=== PATIENT | female | born 1945 | race Caucasian/White ===

== ENCOUNTER → 2020-05-06 | Outpatient (CLI) | payer MEDICARE ==
--- NOTE | 2020-05-06 17:00 | XR ---
EXAMINATION TYPE: XR chest 2V DATE OF EXAM: 05/06/2020 COMPARISON: None HISTORY: 74-year-old female R25.2, cramp and spasm. Presurgical evaluation. TECHNIQUE: AP and lateral views FINDINGS: Heart normal size. Low lung volumes and crowded vascular markings. Diffuse interstitial density. Some hazy left basilar opacity seems to relate to external artifact. No pleural effusion. IMPRESSION: Marked hypoventilatory changes limiting assessment. There are interstitial changes for which bronchit is, asthma, and early pulmonary vascular congestion should be excluded. Consider follow-up when the p atient is able with more adequate inspiration.
[2020-05-06 19:15] LABS: Basophils # (A) 0.06 X 10*3/uL (0.00-0.10); Basophils % (A) 0.8 %; Eosinophils # (A) 0.37 X 10*3/uL (0.04-0.35); Eosinophils % (A) 4.7 %; HCT 36.2 % (37.2-46.3); HGB 11.6 g/dL (12.0-15.0); Lymphocytes # (A) 2.04 X 10*3/uL (0.90-5.00); Lymphocytes % (A) 25.7 %; MCH 27.5 pg (27.0-32.0); MCV 85.8 fL (80.0-97.0); Mean Platelet Volume 11.6 fL (9.5-12.2); Monocytes # (A) 0.58 X 10*3/uL (0.20-1.00); Monocytes % (A) 7.3 %; Neutrophils # (A) 4.87 X 10*3/uL (1.80-7.70); Neutrophils % (A) 61.2 %; Platelet Count 306 X 10*3/uL (140-440); RBC 4.22 X 10*6/uL (4.10-5.20); RDW 13.6 % (11.5-14.5); WBC 7.94 X 10*3/uL (4.50-10.00)
[2020-05-06 20:43] LABS: Partial Thromboplastin Time 30.6 sec (23.5-31.0); Prothrombin Time 10.9 sec (9.9-11.9)
[2020-05-06 21:08] LABS: African American GFR (CKD) 109.7 (60.0-200.0); Albumin 4.2 g/dL (3.80-4.90); Albumin/Globulin Ratio 1.68 (1.60-3.17); Anion Gap 11.6 mmol/L (4.00-12.00); Calcium 10.4 mg/dL (8.7-10.3); Carbon Dioxide 24.4 mmol/L (21.6-31.8); Globulin 2.5 g/dL (1.6-3.3); Non-African American GFR(CKD) 94.7 (60.0-200.0); Potassium 4.1 mmol/L (3.5-5.5); Total Bilirubin 0.5 mg/dL (0.3-1.2); Total Protein 6.7 g/dL (6.2-8.2)
== END | disposition home or self-care (01) ==
LOC: LABWHC1 14:01
PROVIDERS: ATTEND Neurological Surgery
DX: R25.2 Cramp and spasm (principal)
CPT/HCPCS: 36415; 71046; 80053; 85025; 85610; 85730; 87070